=== PATIENT | female | born 1990 | race Caucasian/White ===

== ENCOUNTER → 2018-06-28 | Outpatient (CLI) | payer BC | LOC: FIMAGING 09:44 | PROVIDERS: ATTEND Obstetrics & Gynecology | DX: O09.293 Supervision of pregnancy with other poor reproductive or obstetric history, third trimester (principal); O99.340 Other mental disorders complicating pregnancy, unspecified trimester; Z3A.29 29 weeks gestation of pregnancy; Z79.899 Other long term (current) drug therapy ==